=== PATIENT | female | born 1940 | race Caucasian/White ===

== ENCOUNTER 2017-02-07 22:15 | Emergency (ER) | payer MEDICARE, OTHER ==
--- NOTE | 2017-02-07 22:51 | EDM.PDOC ---
ED HPI GENERAL MEDICAL PROBLEM - General Chief Complaint: Fever Stated Complaint: body aches/fever Time Seen by Provider: 02/07/17 22:25 Source of Information: Reports: Patient History Limitations: Reports: No Limitations - History of Present Illness INITIAL COMMENTS - FREE TEXT/NARRATIVE: pt had bowel resection in December. everything was going well. Had her 1 month follow up on Thursday. However, she began having flu symptoms (bodyache, fever, fatigue, nausea). She called her surgeon however, they said follow up this next week if not better. Pt has progressively getting worse. Tonight her fever is 101, chills/sweats, lower abd pain. 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 - Related Data Allergies Allergy/AdvReac Type Severity Reaction Status Date / Time Penicillins Allergy Rash Verified 02/07/17 22:28 Home Meds: Home Meds Acetaminophen [Acetaminophen Extra Strength] 500 mg PO Q4HR PRN 06/21/13 [ History] Aspirin [Low Dose Aspirin EC] 81 mg PO DAILY 06/21/13 [History] Furosemide [Lasix] 0.5 tab PO DAILY 06/21/13 [History] Lisinopril 10 mg PO DAILY 06/21/13 [History] Docusate Sodium/Sennosides [Senna Plus] 1 tab PO BID #60 tablet 11/09/13 [Rx] Meloxicam 15 mg PO DAILY 04/03/15 [History] Simvastatin [Zocor] 10 mg PO DAILY 04/03/15 [History] Polyethylene Glycol 3350 [MiraLAX] 17 gm PO DAILY 02/07/17 [History] Past Medical History HEENT History: Reports: Impaired Vision Cardiovascular History: Reports: High Cholesterol, Hypertension - Past Surgical History GI Surgical History: Reports: Colon Musculoskeletal Surgical History: Reports: Joint Replacement, Knee Replacement Social & Family History - Tobacco Use Smoking Status *Q: Former Smoker Used Tobacco, but Quit: Yes Month Tobacco Last Used: ? Second Hand Smoke Exposure: No - Alcohol Use Days Per Week of Alcohol Use: 0 - Recreational Drug Use Recreational Drug Use: No ED ROS GENERAL - Review of Systems Review Of Systems: See Below Constitutional: Reports: Fever, Chills, Malaise, Fatigue HEENT: Reports: No Symptoms Respiratory: Reports: No Symptoms Cardiovascular: Reports: No Symptoms Endocrine: Reports: No Symptoms GI/Abdominal: Reports: No Symptoms : Reports: Frequency, Pain, Urgency, Urinary Retention. Denies: Dysuria, Flank Pain, Hematuria Musculoskeletal: Reports: No Symptoms Skin: Reports: No Symptoms Neurological: Reports: No Symptoms. Denies: Confusion, Dizziness, Headache, Numbness Psychiatric: Reports: No Symptoms ED EXAM, GI/ABD - Physical Exam Exam: See Below Exam Limited By: No Limitations General Appearance: Alert, WD/WN, No Apparent Distress Head: Atraumatic, Normocephalic Neck: Normal Inspection Respiratory/Chest: No Respiratory Distress, Lungs Clear, Normal Breath Sounds, No Accessory Muscle Use, Chest Non-Tender Cardiovascular: Normal Peripheral Pulses, Regular Rate, Rhythm, No Edema, No Gallop, No JVD, No Murmur GI/Abdominal Exam: Normal Bowel Sounds, Tender. No: No Distention, No Mass, Pelvis Stable, Distended, Guarding, Rigid, Hernia, Mass Back Exam: Normal Inspection, Full Range of Motion Extremities: Normal Inspection, Normal Range of Motion Neurological: Alert, Oriented Skin Exam: Warm Course - Vital Signs Last Recorded V/S: Last Vital Signs Temp 38.5 C H 02/07/17 22:24 Pulse 94 02/07/17 22:24 Resp 18 02/07/17 22:24 BP 121/62 02/07/17 22:24 Pulse Ox 94 L 02/07/17 22:24 - Orders/Labs/Meds Orders: Active Orders 24 hr Category Date Time Status Abdomen Pelvis w wo Cont [CT] Stat Exams 02/07/17 22:46 Ordered CULTURE BLOOD [BC] Stat Lab 02/07/17 23:10 Received Sodium Chloride 0.9% [Normal Saline] 1,000 ml Med 02/07/17 23:00 Active IV ASDIRECTED Sodium Chloride 0.9% [Saline Flush] Med 02/07/17 22:53 Active 10 ml FLUSH ASDIRECTED PRN Sulfamethoxazole/Trimethoprim [Septra IV] 20 ml Med 02/07/17 23:45 Ordered Dextrose 5% in Water 500 ml IV Q8H Peripheral IV Insertion Adult [OM.PC] Routine Oth 02/07/17 22:53 Ordered Medication Orders Sodium Chloride (Normal Saline) 1,000 mls @ 150 mls/hr IV ASDIRECTED EDWARD Last Admin: 02/07/17 23:15 Dose: 150 mls/hr Sodium Chloride (Saline Flush) 10 ml FLUSH ASDIRECTED PRN PRN Reason: Keep Vein Open Labs: Laboratory Tests 02/07/17 02/07/17 02/07/17 Range/Units 23:04 23:10 23:10 WBC 6.3 (4.0-10.0) x10^3/uL RBC 3.47 L (4.00-5.50) x10^6/uL Hgb 10.8 L (12.0-16.0) g/dL Hct 33.4 (33.0-47.0) % MCV 96.3 H (78.0-93.0) fL MCH 31.1 (26.0-32.0) pg MCHC 32.3 (32.0-36.0) g/dL RDW Coeff of Hcristian 13.0 (10.0-15.0) % Plt Count 264 D (130-400) x10^3/uL Neut % (Auto) 66.4 (50.0-80.0) % Lymph % (Auto) 13.7 L (25.0-50.0) % Blaine % (Auto) 12.4 H (2.0-11.0) % Eos % (Auto) 7.0 H (0.0-4.0) % Baso % (Auto) 0.5 (0.2-1.2) % Sodium 136 (136-145) mmol/L Potassium 4.5 (3.5-5.1) mmol/L Chloride 103 (98-107) mmol/L Carbon Dioxide 25 (21-32) mmol/L BUN 19 H (7-18) mg/dL Creatinine 0.8 (0.55-1.02) mg/dL Est Cr Clr Drug Dosing 53.83 mL/min Estimated GFR (MDRD) > 60 Glucose 111 H (74-106) mg/dL Calcium 8.3 L (8.5-10.1) mg/dL Corrected Calcium 9.34 (8.5-10.1) mg/dL Total Bilirubin 0.5 (0.2-1.0) mg/dL AST 29 (15-37) U/L ALT 11 L (14-59) U/L Alkaline Phosphatase 52 (46-116) U/L Total Protein 6.9 (6.4-8.2) g/dL Albumin 2.7 L (3.4-5.0) g/dL Globulin 4.2 Albumin/Globulin Ratio 0.64 Urine Color Yellow (YELLOW) Urine Appearance Clear (CLEAR) Urine pH 5.5 (5.0-8.0) Ur Specific Wick[place] 1.020 Urine Protein 100 H (NEGATIVE) mg/dL Urine Glucose (UA) Negative (NEGATIVE) mg/dL Urine Ketones Trace H (NEGATIVE) mg/dL Urine Occult Blood Moderate H (NEGATIVE) Urine Nitrite Negative (NEGATIVE) Urine Bilirubin Small H (NEGATIVE) Urine Urobilinogen 1.0 (0.2) EU/dL Ur Leukocyte Esterase Negative (NEGATIVE) Urine RBC 10-20 H (NOT SEEN) /HPF Urine WBC 5-10 H (NOT SEEN) /HPF Ur Squamous Epith Cells Moderate H (NEGATIVE) /HPF Urine Bacteria Few H (NEGATIVE) /HPF Urine Mucus Many H (NEGATIVE) /LPF Meds: Medications Generic Name Dose Route Start Last Admin Trade Name Freq PRN Reason Stop Dose Admin Sodium Chloride 1,000 mls @ 150 mls/hr 02/07/17 23:00 02/07/17 23:15 Normal Saline IV 150 mls/hr ASDIRECTED EDWARD Administration Sodium Chloride 10 ml 02/07/17 22:53 Saline Flush FLUSH ASDIRECTED PRN Keep Vein Open Departure - Departure Time of Disposition: 01:19 Disposition: DC/Tfer to Hospice - Home 50 Condition: Good Clinical Impression: UTI (urinary tract infection) Qualifiers: Urinary tract infection type: acute cystitis Hematuria presence: with hematuria Qualified Code(s): N30.01 - Acute cystitis with hematuria Abdominal pain Qualifiers: Abdominal location: lower abdomen, unspecified Qualified Code(s): R10.30 - Lower abdominal pain, unspecified - Discharge Information Forms: ED Department Discharge - My Orders Last 24 Hours: My Active Orders 02/07/17 22:46 Abdomen Pelvis w wo Cont [CT] Stat 02/07/17 22:53 Sodium Chloride 0.9% [Saline Flush] 10 ml FLUSH ASDIRECTED PRN Peripheral IV Insertion Adult [OM.PC] Routine 02/07/17 23:00 Sodium Chloride 0.9% [Normal Saline] 1,000 ml IV ASDIRECTED 02/07/17 23:10 CULTURE BLOOD [BC] Stat 02/07/17 23:45 Sulfamethoxazole/Trimethoprim [Septra IV] 20 ml Dextrose 5% in Water 500 ml IV Q8H - Assessment/Plan Last 24 Hours: My Active Orders 02/07/17 22:46 Abdomen Pelvis w wo Cont [CT] Stat 02/07/17 22:53 Sodium Chloride 0.9% [Saline Flush] 10 ml FLUSH ASDIRECTED PRN Peripheral IV Insertion Adult [OM.PC] Routine 02/07/17 23:00 Sodium Chloride 0.9% [Normal Saline] 1,000 ml IV ASDIRECTED 02/07/17 23:10 CULTURE BLOOD [BC] Stat 02/07/17 23:45 Sulfamethoxazole/Trimethoprim [Septra IV] 20 ml Dextrose 5% in Water 500 ml IV Q8H
[2017-02-07] MEDS ORDERED: Sodium Chloride 0.9% 10 ML Syringe FLUSH PRN (22:53)
[2017-02-07] MEDS ORDERED: Sodium Chloride 0.9% 1,000 ML IV SCH (23:00)
[2017-02-07 23:45] LABS: CHLORIDE,CL 103 mmol/L (98-107); SODIUM,NA 136 mmol/L (136-145)
[2017-02-07] MEDS ORDERED: Sulfamethoxazole/Trimethoprim 20 ML in Dextrose 5% in Water 500 ML IV SCH ×2 (23:45)
[2017-02-08] MEDS ORDERED: Sulfamethoxazole/Trimethoprim 400-80 MG Tab PO SCH (00:15)
[2017-02-08 00:38] VITALS: BP 108/52
[2017-02-08] MEDS ORDERED: Ibuprofen 200 MG Tab PO STA (00:47)
[2017-02-08] MEDS ORDERED: Take Home: Sulfamethoxazole/Trimethoprim 800-160 MG Tab, 2 Tab Pack PO ONE (01:13)
== END 2017-02-08 01:30 | disposition hospice, home (50) ==
LOC: VM.ED 22:15
DX: N30.01 Acute cystitis with hematuria (principal); I10 Essential (primary) hypertension; Z88.0 Allergy status to penicillin; Z79.82 Long term (current) use of aspirin; Z79.899 Other long term (current) drug therapy; E78.00 Pure hypercholesterolemia, unspecified; Z96.659 Presence of unspecified artificial knee joint; Z87.891 Personal history of nicotine dependence
CPT/HCPCS: 74177; 80053; 81001; 85025; 87040; 96360; 96361; 99285; A9270; J7030; 99284-GF

== ENCOUNTER 2018-10-24 09:49 | Emergency (ER) | payer MEDICARE, OTHER, MEDICAID ==
--- NOTE | 2018-10-24 10:46 | CR ---
[id number] RAD/RAD Chest PA or AP 1V EXAM: SINGLE VIEW CHEST. INDICATION: SHORTNESS OF BREATH COMPARISON: NO PREVIOUS SIMILAR EXAM IS AVAILABLE FINDINGS: The lungs are clear. The cardiac silhouette is enlarged. The aorta is slightly tortuous. IMPRESSION: NO PNEUMONIA OR EDEMA. Tariq Daniels MD 10/24/18 1045 Thank you for allowing us to participate in the care of your patient.
[2018-10-24 11:01] LABS: ANION GAP 13.7 mmol/L (10-20); CHLORIDE,CL 104 mmol/L (98-107); SODIUM,NA 140 mmol/L (136-145)
[2018-10-24] MEDS ORDERED: Furosemide 40 MG/4 ML VIAL IV ONE (11:08)
[2018-10-24] MEDS ORDERED: LORazepam 1 MG Tab PO ONE (11:15)
[2018-10-24] MEDS ORDERED: Albuterol/Ipratropium 3.0-0.5 MG/3 ML Neb Soln ONE (11:17)
--- NOTE | 2018-10-24 12:19 | EDM.PDOC ---
ED HPI GENERAL MEDICAL PROBLEM - General Chief Complaint: Respiratory Problem Stated Complaint: Shortness of Breath Time Seen by Provider: 10/24/18 10:00 Source of Information: Reports: Patient History Limitations: Reports: No Limitations - History of Present Illness INITIAL COMMENTS - FREE TEXT/NARRATIVE: Pt. presents to ER with complaints of dyspnea that started yesterday. Pt. has finished a course of prednisone and levaquin for pneumonia. She states that she is continuing to experience shortness of breath. She complains of orthopnea and LOGAN. She has not been weighing herself. She complains of increased edema in her ankles and feet. She denies any chest pain. No nausea, vomiting, or diarrhea. No abdominal pain. She states that she is no longer experiencing any fever or chills. She has not been around any sick contacts. 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 - Related Data Allergies Allergy/AdvReac Type Severity Reaction Status Date / Time Penicillins Allergy Rash Verified 10/24/18 11:34 Home Meds: Home Meds Aspirin [Low Dose Aspirin EC] 81 mg PO DAILY 06/21/13 [History] Lisinopril 30 mg PO DAILY 06/21/13 [History] Simvastatin [Zocor] 10 mg PO DAILY 04/03/15 [History] Polyethylene Glycol 3350 [MiraLAX] 17 gm PO DAILY 02/07/17 [History] Acetaminophen [Tylenol Extra Strength] 1,000 mg PO QID 03/11/18 [History] Metoprolol Succinate [Toprol XL 50mg] 50 mg PO DAILY 03/11/18 [History] Omeprazole Magnesium [Prilosec Otc] 20 mg PO DAILY 03/11/18 [History] diphenhydrAMINE HCl [Benadryl] 25 mg PO BEDTIME 03/11/18 [History] hydroCHLOROthiazide [Hydrochlorothiazide] 25 g PO DAILY 03/11/18 [History] Budesonide/Formoterol [Symbicort 160-4.5 MCG] 2 puff INH BID 10/24/18 [History] Levofloxacin 500 mg PO DAILY MDD x7 days, done on 10/25/18 10/24/18 [History] Triamcinolone Acetonide [Triamcinolone Acetonide 0.1% Oint] 1 applic TOP BID PRN 10/24/18 [History] Past Medical History HEENT History: Reports: Allergic Rhinitis, Impaired Vision Cardiovascular History: Reports: High Cholesterol, Hypertension Genitourinary History: Reports: Urinary Incontinence Musculoskeletal History: Reports: Back Pain, Chronic - Past Surgical History HEENT Surgical History: Reports: Cataract Surgery Cardiovascular Surgical History: Reports: None GI Surgical History: Reports: Colon Female Surgical History: Reports: Hysterectomy Musculoskeletal Surgical History: Reports: Joint Replacement, Knee Replacement Social & Family History - Family History Cardiac: Reports: Heart Failure ED ROS GENERAL - Review of Systems Review Of Systems: See Below Constitutional: Reports: Fatigue. Denies: Fever, Chills, Diaphoresis HEENT: Reports: No Symptoms Respiratory: Reports: Shortness of Breath. Denies: Wheezing, Cough Cardiovascular: Reports: Dyspnea on Exertion, Orthopnea. Denies: Chest Pain, Syncope Endocrine: Reports: No Symptoms GI/Abdominal: Reports: No Symptoms : Reports: No Symptoms Musculoskeletal: Reports: No Symptoms Skin: Reports: No Symptoms Neurological: Reports: No Symptoms Psychiatric: Reports: No Symptoms Hematologic/Lymphatic: Reports: No Symptoms Immunologic: Reports: No Symptoms ED EXAM, GENERAL - Physical Exam Exam: See Below Exam Limited By: No Limitations General Appearance: Alert, WD/WN, No Apparent Distress Throat/Mouth: Normal Inspection, Normal Lips, Normal Teeth, Normal Gums, Normal Oropharynx, Normal Voice, No Airway Compromise Head: Atraumatic, Normocephalic Neck: Normal Inspection, Supple, Non-Tender Respiratory/Chest: No Respiratory Distress, No Accessory Muscle Use, Crackles, Rales Cardiovascular: Normal Peripheral Pulses, Regular Rate, Rhythm, No JVD GI/Abdominal: Normal Bowel Sounds, Soft, Non-Tender, No Organomegaly, No Distention, No Abnormal Bruit, No Mass Back Exam: Normal Inspection, Full Range of Motion Extremities: Normal Inspection, Normal Range of Motion, Non-Tender, Normal Capillary Refill, No Pedal Edema EKG INTERPRETATION Rhythm: NSR [place]: Normal P-Wave: Present QRS: Normal ST-T: Normal QT: Normal Course - Vital Signs Last Recorded V/S: Last Vital Signs Temp 36.2 C 10/24/18 09:55 Pulse 89 10/24/18 12:00 Resp 32 H 10/24/18 09:55 BP 117/56 L 10/24/18 12:00 Pulse Ox 96 10/24/18 11:53 - Orders/Labs/Meds Labs: Laboratory Tests 10/24/18 10/24/18 10/24/18 Range/Units 10:22 10:22 10:22 WBC 9.5 (4.0-10.0) x10^3/uL RBC 4.08 (4.00-5.50) x10^6/uL Hgb 13.0 D (12.0-16.0) g/dL Hct 40.0 (33.0-47.0) % MCV 98.0 H (78.0-93.0) fL MCH 31.9 (26.0-32.0) pg MCHC 32.5 (32.0-36.0) g/dL RDW Coeff of Christian 12.7 (10.0-15.0) % Plt Count 260 (130-400) x10^3/uL Add Manual Diff Yes Neutrophils % (Manual) 60 (50-80) % Band Neutrophils % 1 (0-6) % Lymphocytes % (Manual) 10 L (25-50) % Reactive Lymphs % 17 H (0) % Monocytes % (Manual) 12 H (2-11) % Vacuolated Monocytes Rare Platelet Estimate Adequate Macrocytosis 1+ slight H Ovalocytes Rare PT 10.7 (10.0-12.8) SEC INR 0.9 L (2.0-3.5) D-Dimer, Quantitative 0.43 (<=0.58) mg/LFEU Sodium 140 (136-145) mmol/L Potassium 3.7 (3.5-5.1) mmol/L Chloride 104 (98-107) mmol/L Carbon Dioxide 26 (21-32) mmol/L Anion Gap 13.7 (10-20) mmol/L BUN 25 H (7-18) mg/dL Creatinine 0.8 (0.55-1.02) mg/dL Est Cr Clr Drug Dosing TNP Estimated GFR (MDRD) > 60 Glucose 101 (74-106) mg/dL Lactic Acid (0.4-2.0) mmol/L Calcium 8.9 (8.5-10.1) mg/dL Corrected Calcium 9.54 (8.5-10.1) mg/dL Phosphorus 2.5 L (2.6-4.7) mg/dL Magnesium 1.9 (1.8-2.4) mg/dL Total Bilirubin 0.4 (0.2-1.0) mg/dL AST 16 (15-37) U/L ALT 20 (14-59) U/L Alkaline Phosphatase 52 (46-116) U/L Troponin I < 0.017 (<=0.056) ng/mL C-Reactive Protein < 0.2 (<=0.9) mg/dL NT-Pro-B Natriuret Pep 1019 H (<=450) pg/mL Total Protein 6.5 (6.4-8.2) g/dL Albumin 3.2 L (3.4-5.0) g/dL Globulin 3.3 Albumin/Globulin Ratio 0.97 / Range/Units 10:22 WBC (4.0-10.0) x10^3/uL RBC (4.00-5.50) x10^6/uL Hgb (12.0-16.0) g/dL Hct (33.0-47.0) % MCV (78.0-93.0) fL MCH (26.0-32.0) pg MCHC (32.0-36.0) g/dL RDW Coeff of Christian (10.0-15.0) % Plt Count (130-400) x10^3/uL Add Manual Diff Neutrophils % (Manual) (50-80) % Band Neutrophils % (0-6) % Lymphocytes % (Manual) (25-50) % Reactive Lymphs % (0) % Monocytes % (Manual) (2-11) % Vacuolated Monocytes Platelet Estimate Macrocytosis Ovalocytes PT (10.0-12.8) SEC INR (2.0-3.5) D-Dimer, Quantitative (<=0.58) mg/LFEU Sodium (136-145) mmol/L Potassium (3.5-5.1) mmol/L Chloride (98-107) mmol/L Carbon Dioxide (21-32) mmol/L Anion Gap (10-20) mmol/L BUN (7-18) mg/dL Creatinine (0.55-1.02) mg/dL Est Cr Clr Drug Dosing Estimated GFR (MDRD) Glucose (74-106) mg/dL Lactic Acid 2.1 H* (0.4-2.0) mmol/L Calcium (8.5-10.1) mg/dL Corrected Calcium (8.5-10.1) mg/dL Phosphorus (2.6-4.7) mg/dL Magnesium (1.8-2.4) mg/dL Total Bilirubin (0.2-1.0) mg/dL AST (15-37) U/L ALT (14-59) U/L Alkaline Phosphatase (46-116) U/L Troponin I (<=0.056) ng/mL C-Reactive Protein (<=0.9) mg/dL NT-Pro-B Natriuret Pep (<=450) pg/mL Total Protein (6.4-8.2) g/dL Albumin (3.4-5.0) g/dL Globulin Albumin/Globulin Ratio Meds: Medications Discontinued Medications Generic Name Dose Route Start Last Admin Trade Name Freq PRN Reason Stop Dose Admin Albuterol/Ipratropium Confirm 10/24/18 11:17 10/24/18 10:04 Duoneb 3.0-0.5 Mg/3 Ml Administered 10/24/18 11:18 3 ml Dose Administration 3 ml .ROUTE .STK-MED ONE Furosemide 40 mg 10/24/18 11:08 10/24/18 11:15 Lasix IV 10/24/18 11:09 40 mg ONETIME ONE Administration Lorazepam 1 mg 10/24/18 11:15 10/24/18 11:24 Ativan PO 10/24/18 11:16 1 mg ONETIME ONE Administration - Radiology Interpretation Free Text/Narrative:: CHF Departure - Departure Time of Disposition: 12:00 Disposition: Home, Self-Care 01 Condition: Good Clinical Impression: Congestive heart failure - Discharge Information Instructions: Heart Failure, [id number], Preventing Heart Failure Referrals: Nina Bolanos MD [Primary Care Provider] - Forms: ED Department Discharge Additional Instructions: Home to rest. Continue with your other medications. Follow-up with Dr. Bolanos later this week. Return to ER if you have worsening shortness of breath or chest pain. - Problem List Review Problem List Initiated/Reviewed/Updated: Yes - Assessment/Plan Plan: Home to rest. Continue with your other medications. Follow-up with Dr. Bolanos later this week. Return to ER if you have worsening shortness of breath or chest pain.
[2018-10-24 12:33] VITALS: BP 117/56
== END 2018-10-24 12:00 | disposition home or self-care (01) ==
LOC: VM.ED 09:49
DX: I11.0 Hypertensive heart disease with heart failure (principal); I50.9 Heart failure, unspecified; Z79.899 Other long term (current) drug therapy; Z88.0 Allergy status to penicillin; Z79.82 Long term (current) use of aspirin
CPT/HCPCS: 36415; 71045; 80053; 83605; 83735; 83880; 84100; 84484; 85025; 85379; 85610; 86140; 87040; 96374; 99285-25; A9270-GY; J1940; J7620-GY

== ENCOUNTER 2019-03-31 21:25 | Emergency (ER) | payer MEDICARE, OTHER ==
[2019-03-31 21:39] VITALS: BP 143/56; PULSE 89
[2019-03-31 22:15] LABS: CHLORIDE,CL 104 mmol/L (98-109); SODIUM,NA 140 mmol/L (138-146)
--- NOTE | 2019-04-01 06:09 | EDM.PDOC ---
ED HPI GENERAL MEDICAL PROBLEM - General Chief Complaint: Cardiovascular Problem Stated Complaint: HIGH BP AND DIZZY Time Seen by Provider: 03/31/19 21:39 Source of Information: Reports: Patient History Limitations: Reports: No Limitations - History of Present Illness INITIAL COMMENTS - FREE TEXT/NARRATIVE: Pt. presents to ER with complaints of feeling "fuzzy". She states that she has a history of vertigo and sees PT for this which has been helpful. She states that the symptoms are similar to that. Denies any chest pain. No jaw, arm, neck or back pain. No fever or chills. No dysuria. Pt. states that she took her BP at home and her machine read 240/120. BP on arrival to ED was within normal limits. Pt. denies any fever or chills. No nausea, vomiting, or diarrhea. Onset Date: 03/31/19 Location: Reports: Generalized Associated Symptoms: Reports: Other - Related Data Allergies Allergy/AdvReac Type Severity Reaction Status Date / Time Penicillins Allergy Rash Verified 03/31/19 21:29 Home Meds: Home Meds Aspirin [Low Dose Aspirin EC] 81 mg PO DAILY 06/21/13 [History] Lisinopril 30 mg PO DAILY 06/21/13 [History] Polyethylene Glycol 3350 [MiraLAX] 17 gm PO DAILY 02/07/17 [History] Acetaminophen [Tylenol Extra Strength] 1,000 mg PO QID 03/11/18 [History] Metoprolol Succinate [Toprol XL 50mg] 25 mg PO DAILY 03/11/18 [History] Omeprazole Magnesium [Prilosec Otc] 20 mg PO DAILY 03/11/18 [History] diphenhydrAMINE HCl [Benadryl] 25 mg PO BEDTIME 03/11/18 [History] hydroCHLOROthiazide [Hydrochlorothiazide] 25 g PO DAILY 03/11/18 [History] Budesonide/Formoterol [Symbicort 160-4.5 MCG] 2 puff INH BID 10/24/18 [History] Triamcinolone Acetonide [Triamcinolone Acetonide 0.1% Oint] 1 applic TOP BID PRN 10/24/18 [History] Albuterol [Proventil HFA] 2 puff INH Q4H PRN 03/03/19 [History] Cranberry Extract/Vit C [Azo Cranberry Softgel] 1 each PO DAILY PRN 03/03/19 [ History] Furosemide 20 mg PO DAILY 03/03/19 [History] Pravastatin [Pravachol] 10 mg PO DAILY 03/03/19 [History] Tiotropium Br/Olodaterol HCl [Stiolto Respimat Inhal [place]] 2 puff IH DAILY [History] Past Medical History HEENT History: Reports: Allergic Rhinitis, Impaired Vision Cardiovascular History: Reports: High Cholesterol, Hypertension Other Cardiovascular History: 02/2019 states she has fluid around heart and is taking lasix now Respiratory History: Reports: COPD Genitourinary History: Reports: Urinary Incontinence Musculoskeletal History: Reports: Back Pain, Chronic Neurological History: Reports: Vertigo Psychiatric History: Reports: None Endocrine/Metabolic History: Reports: Obesity/BMI 30+ - Past Surgical History HEENT Surgical History: Reports: Cataract Surgery Cardiovascular Surgical History: Reports: None GI Surgical History: Reports: Colon, Colonoscopy Female Surgical History: Reports: Hysterectomy Musculoskeletal Surgical History: Reports: Joint Replacement, Knee Replacement Social & Family History - Family History Cardiac: Reports: Heart Failure - Tobacco Use Smoking Status *Q: Unknown Ever Smoked ED ROS GENERAL - Review of Systems Review Of Systems: See Below Constitutional: Reports: Other HEENT: Reports: Vertigo Respiratory: Reports: No Symptoms Cardiovascular: Reports: Lightheadedness Endocrine: Reports: No Symptoms GI/Abdominal: Reports: No Symptoms : Reports: No Symptoms Musculoskeletal: Reports: No Symptoms Skin: Reports: No Symptoms Neurological: Reports: Dizziness Psychiatric: Reports: No Symptoms Hematologic/Lymphatic: Reports: No Symptoms Immunologic: Reports: No Symptoms ED EXAM, GENERAL - Physical Exam Exam: See Below Exam Limited By: No Limitations General Appearance: Alert, WD/WN, No Apparent Distress Eye Exam: Bilateral Eye: EOMI, Normal Fundi, Normal Inspection, PERRL Nose: Normal Inspection, Normal Mucosa, No Blood Throat/Mouth: Normal Inspection, Normal Lips, Normal Teeth, Normal Gums, Normal Oropharynx, Normal Voice, No Airway Compromise Head: Atraumatic, Normocephalic Neck: Normal Inspection, Supple, Non-Tender, Full Range of Motion Respiratory/Chest: No Respiratory Distress, Lungs Clear, Normal Breath Sounds, No Accessory Muscle Use, Chest Non-Tender Cardiovascular: Normal Peripheral Pulses, Regular Rate, Rhythm, No Edema, No Gallop, No JVD, No Murmur, No Rub Peripheral Pulses: 4+: Radial (L) GI/Abdominal: Normal Bowel Sounds, Soft, Non-Tender, No Organomegaly, No Distention, No Abnormal Bruit, No Mass, Pelvis Stable (Female) Exam: Deferred Rectal (Female) Exam: Deferred Back Exam: Normal Inspection, Full Range of Motion Extremities: Normal Inspection, Normal Range of Motion, Non-Tender, No Pedal Edema, Normal Capillary Refill Neurological: Alert, Oriented, CN II-XII Intact, Normal Cognition, Normal Gait, Normal Reflexes, No Motor/Sensory Deficits Psychiatric: Normal Affect, Normal Mood Skin Exam: Warm, Dry, Intact, Normal Color, No Rash Lymphatic: No Adenopathy Course - Vital Signs Last Recorded V/S: Last Vital Signs Temp 37.3 C 03/31/19 21:29 Pulse 89 03/31/19 21:29 Resp 18 03/31/19 21:29 BP 143/56 H 03/31/19 21:29 Pulse Ox 93 L 03/31/19 21:29 - Orders/Labs/Meds Orders: Active Orders 24 hr Category Date Time Status EKG Documentation Completion [RC] STAT Care 03/31/19 21:44 Active Chest 2V [CR] Stat Exams 03/31/19 21:44 Taken Labs: Laboratory Tests 03/31/19 03/31/19 03/31/19 Range/Units 22:01 22:01 22:06 WBC 7.9 (4.0-10.0) x10^3/uL RBC 3.81 L (4.00-5.50) x10^6/uL Hgb 12.0 (12.0-16.0) g/dL Hct 37.9 (33.0-47.0) % MCV 99.5 H (78.0-93.0) fL MCH 31.5 (26.0-32.0) pg MCHC 31.7 L (32.0-36.0) g/dL RDW Coeff of Christian 13.2 (10.0-15.0) % Plt Count 180 D (130-400) x10^3/uL Neut % (Auto) 64.9 (50.0-80.0) % Lymph % (Auto) 19.8 L (25.0-50.0) % [place] % (Auto) 10.2 (2.0-11.0) % Eos % (Auto) 4.5 H (0.0-4.0) % Baso % (Auto) 0.6 (0.2-1.2) % Sodium 140 (138-146) mmol/L Potassium 4.0 (3.5-4.9) mmol/L Chloride 104 (98-109) mmol/L Carbon Dioxide 25 (24-29) mmol/L Anion Gap 15.0 (10-20) mmol/L BUN 27 H (8-26) mg/dL Creatinine 1.0 (0.6-1.3) mg/dL Est Cr Clr Drug Dosing TNP Estimated GFR (MDRD) 54 Glucose 127 H (70-105) mg/dL Calcium 8.6 (8.5-10.1) mg/dL Corrected Calcium 9.08 (8.5-10.1) mg/dL Total Bilirubin 0.3 (0.2-1.0) mg/dL AST 16 (15-37) U/L ALT 17 (14-59) U/L Alkaline Phosphatase 58 (46-116) U/L Troponin I < 0.017 (<=0.056) ng/mL Total Protein 7.1 (6.4-8.2) g/dL Albumin 3.4 (3.4-5.0) g/dL Globulin 3.7 Albumin/Globulin Ratio 0.92 Urine Color Yellow (YELLOW) Urine Appearance Clear (CLEAR) Urine pH 6.0 (5.0-8.0) Ur Specific [place] 1.025 Urine Protein Negative (NEGATIVE) mg/dL Urine Glucose (UA) Negative (NEGATIVE) mg/dL Urine Ketones Negative (NEGATIVE) mg/dL Urine Occult Blood Small H (NEGATIVE) Urine Nitrite Negative (NEGATIVE) Urine Bilirubin Negative (NEGATIVE) Urine Urobilinogen 0.2 (0.2) EU/dL Ur Leukocyte Esterase Negative (NEGATIVE) Urine RBC 0-5 (NOT SEEN) /HPF Urine WBC 0-5 (NOT SEEN) /HPF Ur Squamous Epith Cells Many H (NEGATIVE) /HPF Urine Bacteria Not seen (NEGATIVE) /HPF Urine Mucus Moderate H (NEGATIVE) /LPF Departure - Departure Time of Disposition: 22:53 Disposition: Home, Self-Care 01 Clinical Impression: Vertigo Instructions: Vertigo, [id number] Referrals: Nina Bolanos MD [Primary Care Provider] - Forms: ED Department Discharge Additional Instructions: Home to rest. All of your tests were normal. Follow-up with physical therapy regarding your vertigo. - My Orders Last 24 Hours: My Active Orders 03/31/19 21:44 EKG Documentation Completion [RC] STAT Chest 2V [CR] Stat - Assessment/Plan Last 24 Hours: My Active Orders 03/31/19 21:44 EKG Documentation Completion [RC] STAT Chest 2V [CR] Stat Plan: Home to rest. All of your tests were normal. Follow-up with physical therapy regarding your vertigo.
--- NOTE | 2019-04-01 07:42 | CR ---
[id number] RAD/RAD Chest PA And Lateral EXAM: RAD Chest PA And Lateral CLINICAL DATA: SYNCOPE BRADYCARDIA COMPARISON: CORRELATION IS MADE WITH THE EXAM OF OCTOBER 24, 2018 FINDINGS: The lungs are clear. The cardiomediastinal contour is prominent but stable. The regional bones and soft tissues are unremarkable. IMPRESSION: NO ACUTE PROCESS. Tariq Daniels MD 04/01/19 0741 Thank you for allowing us to participate in the care of your patient.
== END 2019-03-31 22:53 | disposition home or self-care (01) ==
LOC: VM.ED 21:25
DX: R42 Dizziness and giddiness (principal); I10 Essential (primary) hypertension; E66.9 Obesity, unspecified; Z79.899 Other long term (current) drug therapy; Z98.49 Cataract extraction status, unspecified eye; Z90.710 Acquired absence of both cervix and uterus; Z88.0 Allergy status to penicillin; Z79.82 Long term (current) use of aspirin
CPT/HCPCS: 36415; 71046; 80053; 81001; 84484; 85025; 93005; 99284-25; 99284-GF

== ENCOUNTER 2020-01-28 16:50 | Emergency (ER) | payer MEDICARE, OTHER ==
[2020-01-28] MEDS ORDERED: Sodium Chloride 0.9% 10 ML Syringe FLUSH PRN (17:18)
[2020-01-28] MEDS ORDERED: Ondansetron 4 MG/2 ML SDV IV ONE (17:33)
[2020-01-28] MEDS ORDERED: HYDROmorphone 1 MG/ML Syringe IVPUSH ONE (17:33)
[2020-01-28] MEDS ORDERED: Piperacillin/Tazobactam 3.375 GM in Sodium Chloride 0.9% 100 ML IV ONE (17:34)
--- NOTE | 2020-01-28 17:40 | EDM.PDOC ---
ED HPI GENERAL MEDICAL PROBLEM - General Chief Complaint: General Stated Complaint: SOMETHINGS JUST NOT RIGHT Time Seen by Provider: 01/28/20 17:25 Source of Information: Reports: Patient - History of Present Illness INITIAL COMMENTS - FREE TEXT/NARRATIVE: Patient comes emergency department today from home with complaints of nausea and a bandlike epigastric pain. Yesterday during the day the patient was without complaints. Last night she had some [place] food shortly thereafter she developed nausea bloating and gas. She has a bandlike sensation around her epigastric region. She has no chest pain shortness of breath or difficulty breathing. She denies any fever chills body aches malaise or fatigue. No weakness dizziness lightheadedness. No syncope. She does complain of nausea without vomiting. She has had 3-4 loose diarrheal stools today that were not dark tarry or bloody in nature. She denies any COVID symptoms denies any cold exposure. Denies any hematuria dysuria or urinary frequency. She still has her appendix and her gallbladder. She has had a hysterectomy and a bowel resection in the past. Abdominal Pain Score (Numeric/FACES): 4 - Related Data Allergies Allergy/AdvReac Type Severity Reaction Status Date / Time Penicillins Allergy Rash Verified 01/28/20 17:01 Home Meds: Home Meds Aspirin [Low Dose Aspirin EC] 81 mg PO DAILY 06/21/13 [History] Lisinopril 30 mg PO DAILY 06/21/13 [History] Polyethylene Glycol 3350 [MiraLAX] 17 gm PO DAILY 02/07/17 [History] Acetaminophen [Tylenol Extra Strength] 1,000 mg PO QID 03/11/18 [History] Metoprolol Succinate [Toprol XL 50mg] 25 mg PO DAILY 03/11/18 [History] Omeprazole Magnesium [Prilosec Otc] 20 mg PO DAILY 03/11/18 [History] diphenhydrAMINE HCL [Benadryl] 25 mg PO BEDTIME 03/11/18 [History] hydroCHLOROthiazide [Hydrochlorothiazide] 25 g PO DAILY 03/11/18 [History] Budesonide/Formoterol [Symbicort 160-4.5 MCG] 2 puff INH BID 10/24/18 [History] Triamcinolone Acetonide [Triamcinolone Acetonide 0.1% Oint] 1 applic TOP BID PRN 10/24/18 [History] Albuterol [Proventil HFA] 2 puff INH Q4H PRN 03/03/19 [History] Cranberry Fruit Extract/Vit C [Azo Cranberry Softgel] 1 each PO DAILY PRN 03/03/19 [History] Furosemide 20 mg PO DAILY 03/03/19 [History] Pravastatin [Pravachol] 10 mg PO DAILY 03/03/19 [History] Tiotropium Br/Olodaterol HCl [Stiolto Respimat Inhal [place]] 2 puff IH DAILY 03/03/19 [History] Past Medical History HEENT History: Reports: Allergic Rhinitis, Impaired Vision Cardiovascular History: Reports: High Cholesterol, Hypertension Other Cardiovascular History: 02/2019 states she has fluid around heart and is taking lasix now Respiratory History: Reports: COPD Genitourinary History: Reports: Urinary Incontinence Musculoskeletal History: Reports: Back Pain, Chronic Neurological History: Reports: Vertigo Psychiatric History: Reports: None Endocrine/Metabolic History: Reports: Obesity/BMI 30+ - Past Surgical History HEENT Surgical History: Reports: Cataract Surgery Cardiovascular Surgical History: Reports: None GI Surgical History: Reports: Colon, Colonoscopy Female Surgical History: Reports: Hysterectomy Musculoskeletal Surgical History: Reports: Joint Replacement, Knee Replacement Social & Family History - Family History Cardiac: Reports: Heart Failure ED ROS GENERAL - Review of Systems Review Of Systems: Comprehensive ROS is negative, except as noted in HPI. ED EXAM, GENERAL - Physical Exam Exam: See Below Exam Limited By: No Limitations General Appearance: Alert, WD/WN, No Apparent Distress Respiratory/Chest: No Respiratory Distress, Lungs Clear, Normal Breath Sounds, No Accessory Muscle Use Cardiovascular: Normal Peripheral Pulses, Regular Rate, Rhythm Peripheral Pulses: 2+: Radial (L), Radial (R), Posterior Tibial (L), Posterior Tibial (R), Dorsalis Pedis (L), Dorsalis Pedis (R) GI/Abdominal: Normal Bowel Sounds, Soft, Guarding (Right upper quadrant and epigastric region), Rebound (Rebound tenderness of the right upper quadrant. Rest of the abdomen is soft nontender nondistended), Tender (Right upper quadrant with a positive Kwong sign), Abnormal Bowel Sounds (Hypoactive bowel sounds), Other (She has tympany to percussion in the upper abdomen and dullness to percussion in the lower abdomen.). No: Distended, Rigid (Female) Exam: Deferred Rectal (Female) Exam: Deferred Back Exam: Normal Inspection, Full Range of Motion Extremities: Normal Inspection, Normal Range of Motion Neurological: Alert, Oriented, Normal Cognition, No Motor/Sensory Deficits Psychiatric: Normal Affect Skin Exam: Intact, Cool, Diaphoretic, Pallor EKG INTERPRETATION EKG Date: 01/28/20 Time: 17:19 Rhythm: NSR (With ventricular bigeminy as well none perfused ectopic beats.) Rate (Beats/Min): 64 (128 on the EKG but she does not perfuse with the ectopic bigeminy) [place]: Normal P-Wave: Present QRS: Normal ST-T: Normal QT: Normal Comparison: Change From Previous EKG (bigeminy was not present on previous EKG.) Course - Vital Signs Last Recorded V/S: Last Vital Signs Temp 95.5 F L 01/28/20 18:31 Pulse 100 01/28/20 18:31 Resp 16 01/28/20 18:31 BP 110/53 L 01/28/20 18:31 Pulse Ox 90 L 01/28/20 18:31 - Orders/Labs/Meds Orders: Active Orders 24 hr Category Date Time Status EKG Documentation Completion [RC] STAT Care 01/28/20 17:18 Active CULTURE BLOOD [BC] Stat Lab 01/28/20 17:35 Received CULTURE BLOOD [BC] Stat Lab 01/28/20 17:42 Received Sodium Chloride 0.9% [Saline Flush] Med 01/28/20 17:18 Active 10 ml FLUSH ASDIRECTED PRN Blood Culture x2 Reflex Set [OM.PC] Stat Oth 01/28/20 17:31 Ordered Peripheral IV Insertion Adult [OM.PC] Stat Oth 01/28/20 17:18 Ordered Medication Orders Sodium Chloride (Saline Flush) 10 ml FLUSH ASDIRECTED PRN PRN Reason: Keep Vein Open Last Admin: 01/28/20 17:55 Dose: 10 ml Documented by: SALEEM Labs: Laboratory Tests 01/28/20 01/28/20 01/28/20 Range/Units 17:19 17:19 17:35 WBC 22.0 H* (4.0-10.0) x10^3/uL RBC 3.83 L (4.00-5.50) x10^6/uL Hgb 12.5 (12.0-16.0) g/dL Hct 37.7 (33.0-47.0) % MCV 98.4 H (78.0-93.0) fL MCH 32.6 H (26.0-32.0) pg MCHC 33.2 (32.0-36.0) g/dL RDW Coeff of Christian 12.9 (10.0-15.0) % Plt Count 304 D (130-400) x10^3/uL Add Manual Diff Yes Neutrophils % (Manual) 76 (50-80) % Band Neutrophils % 5 (0-6) % Lymphocytes % (Manual) 12 L (25-50) % Monocytes % (Manual) 5 (2-11) % Eosinophils % (Manual) 1 (0-4) % Metamyelocytes % 1 H (0) % Sodium 135 L (136-145) mmol/L Potassium 4.3 (3.5-5.1) mmol/L Chloride 99 (98-107) mmol/L Carbon Dioxide 25 (21-32) mmol/L Anion Gap 15.3 (10-20) mmol/L BUN 25 H (7-18) mg/dL Creatinine 1.0 (0.55-1.02) mg/dL Est Cr Clr Drug Dosing 44.36 mL/min Estimated GFR (MDRD) 53 Glucose 134 H (74-106) mg/dL Lactic Acid 1.7 (0.4-2.0) mmol/L Calcium 9.1 (8.5-10.1) mg/dL Corrected Calcium 9.50 (8.5-10.1) mg/dL Total Bilirubin 0.8 (0.2-1.0) mg/dL AST 19 (15-37) U/L ALT 20 (14-59) U/L Alkaline Phosphatase 58 (46-116) U/L Troponin I < 0.017 (<=0.056) ng/mL C-Reactive Protein 7.6 H (<=0.9) mg/dL Total Protein 7.2 (6.4-8.2) g/dL Albumin 3.5 (3.4-5.0) g/dL Globulin 3.7 Albumin/Globulin Ratio 0.95 Lipase 211 (73-393) U/L Urine Color (YELLOW) Urine Appearance (CLEAR) Urine pH (5.0-8.0) Ur Specific [place] Urine Protein (NEGATIVE) mg/dL Urine Glucose (UA) (NEGATIVE) mg/dL Urine Ketones (NEGATIVE) mg/dL Urine Occult Blood (NEGATIVE) Urine Nitrite (NEGATIVE) Urine Bilirubin (NEGATIVE) Urine Urobilinogen (0.2) EU/dL Ur Leukocyte Esterase (NEGATIVE) Urine RBC (NOT SEEN) /HPF Urine WBC (NOT SEEN) /HPF Ur Squamous Epith Cells (NEGATIVE) /HPF Urine Bacteria (NEGATIVE) /HPF Urine Mucus (NEGATIVE) /LPF 01/28/20 Range/Units 18:10 WBC (4.0-10.0) x10^3/uL RBC (4.00-5.50) x10^6/uL Hgb (12.0-16.0) g/dL Hct (33.0-47.0) % MCV (78.0-93.0) fL MCH (26.0-32.0) pg MCHC (32.0-36.0) g/dL RDW Coeff of Christian (10.0-15.0) % Plt Count (130-400) x10^3/uL Add Manual Diff Neutrophils % (Manual) (50-80) % Band Neutrophils % (0-6) % Lymphocytes % (Manual) (25-50) % Monocytes % (Manual) (2-11) % Eosinophils % (Manual) (0-4) % Metamyelocytes % (0) % Sodium (136-145) mmol/L Potassium (3.5-5.1) mmol/L Chloride (98-107) mmol/L Carbon Dioxide (21-32) mmol/L Anion Gap (10-20) mmol/L BUN (7-18) mg/dL Creatinine (0.55-1.02) mg/dL Est Cr Clr Drug Dosing mL/min Estimated GFR (MDRD) Glucose (74-106) mg/dL Lactic Acid (0.4-2.0) mmol/L Calcium (8.5-10.1) mg/dL Corrected Calcium (8.5-10.1) mg/dL Total Bilirubin (0.2-1.0) mg/dL AST (15-37) U/L ALT (14-59) U/L Alkaline Phosphatase (46-116) U/L Troponin I (<=0.056) ng/mL C-Reactive Protein (<=0.9) mg/dL Total Protein (6.4-8.2) g/dL Albumin (3.4-5.0) g/dL Globulin Albumin/Globulin Ratio Lipase (73-393) U/L Urine Color Dark yellow H (YELLOW) Urine Appearance Slightly cloudy H (CLEAR) Urine pH 6.0 (5.0-8.0) Ur Specific [place] 1.025 Urine Protein Negative (NEGATIVE) mg/dL Urine Glucose (UA) Negative (NEGATIVE) mg/dL Urine Ketones Negative (NEGATIVE) mg/dL Urine Occult Blood Moderate H (NEGATIVE) Urine Nitrite Negative (NEGATIVE) Urine Bilirubin Small H (NEGATIVE) Urine Urobilinogen 0.2 (0.2) EU/dL Ur Leukocyte Esterase Negative (NEGATIVE) Urine RBC 10-20 H (NOT SEEN) /HPF Urine WBC 0-5 (NOT SEEN) /HPF Ur Squamous Epith Cells Few H (NEGATIVE) /HPF Urine Bacteria Rare (NEGATIVE) /HPF Urine Mucus Few H (NEGATIVE) /LPF Meds: Medications Generic Name Dose Route Start Last Admin Trade Name Fresamantha PRN Reason Stop Dose Admin Sodium Chloride 10 ml 01/28/20 17:18 01/28/20 17:55 Saline Flush FLUSH 10 ml ASDIRECTED PRN Administration Keep Vein Open Discontinued Medications Generic Name Dose Route Start Last Admin Trade Name Fresamantha PRN Reason Stop Dose Admin Hydromorphone HCl 0.5 mg 01/28/20 17:33 01/28/20 17:54 Dilaudid IVPUSH 01/28/20 17:34 0.5 mg ONETIME ONE Administration Piperacillin Sod/Tazobactam 100 mls @ 200 mls/hr 01/28/20 17:34 01/28/20 18:05 Sod 3.375 gm/ Sodium Chloride IV 01/28/20 18:03 200 mls/hr STAT ONE Administration Lactated Ringer's 1,000 mls @ 999 mls/hr 01/28/20 17:58 01/28/20 18:31 Ringers, Lactated IV 01/28/20 18:58 999 mls/hr ONETIME ONE Administration Iopamidol 100 ml 01/28/20 18:29 01/28/20 18:30 Isovue-300 (61%) IVPUSH 01/28/20 18:30 100 ml ONETIME ONE Administration Ondansetron HCl 4 mg 01/28/20 17:33 01/28/20 17:51 Zofran IV 01/28/20 17:34 4 mg ONETIME ONE Administration - Re-Assessments/Exams Free Text/Narrative Re-Assessment/Exam: 01/28/20 17:41 With the 22k WBC blood cultures x 2 Zosyn 3.375mg IVpB Ondansetron and dilaudid for pain and nausea. CT abd pelvis pending. 01/28/20 19:47 The patient's pain was much improved after the above therapy. CT scan of the abdomen pelvis per radiology shows surrounding fat stranding in the region of the pancreatic head. 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 No fluid collection no thrombosis of the portal vein. No splenic artery aneurysm. No gallbladder wall thickening or ulises-cholecystic fluid. Her urine has some blood in it although no noted stones per the CT scan. No sign of infection. I am unsure of exactly where her pain and WBC is coming from although I have concerns of her gallbladder by exam. I called and spoke with Dr. Giraldo the hospitalist behavioral consultant at [facility] in [place]. HPI ER COURSE findings and concerns were relayed to him. He accepted the patient in transfer with no new orders or guidance at this time. Departure - Departure Time of Disposition: 19:45 Disposition: DC/Tfer to [facility] 02 Clinical Impression: RUQ pain Leukocytosis Qualifiers: Leukocytosis type: unspecified Qualified Code(s): D72.829 - Elevated white blood cell count, unspecified - Discharge Information Referrals: Nina Bolanos MD [Primary Care Provider] - Forms: ED Department Discharge, Interfacility Transfer [facility] Sepsis Event Note (ED) - Evaluation Sepsis Screening Result: No Definite Risk - Focused Exam Vital Signs: Vital Signs Temp Pulse Resp BP Pulse Ox 01/28/20 18:31 95.5 F L 100 16 110/53 L 90 L 01/28/20 17:01 100.1 F 55 L 16 137/51 L 93 L - My Orders Last 24 Hours: My Active Orders 01/28/20 17:18 EKG Documentation Completion [RC] STAT Sodium Chloride 0.9% [Saline Flush] 10 ml FLUSH ASDIRECTED PRN Peripheral IV Insertion Adult [OM.PC] Stat 01/28/20 17:31 Blood Culture x2 Reflex Set [OM.PC] Stat 01/28/20 17:35 CULTURE BLOOD [BC] Stat 01/28/20 17:42 CULTURE BLOOD [BC] Stat - Assessment/Plan Last 24 Hours: My Active Orders 01/28/20 17:18 EKG Documentation Completion [RC] STAT Sodium Chloride 0.9% [Saline Flush] 10 ml FLUSH ASDIRECTED PRN Peripheral IV Insertion Adult [OM.PC] Stat 01/28/20 17:31 Blood Culture x2 Reflex Set [OM.PC] Stat 01/28/20 17:35 CULTURE BLOOD [BC] Stat 01/28/20 17:42 CULTURE BLOOD [BC] Stat Assessment:: RUQ pain Leukocytosis. ? acute pineda
[2020-01-28 17:43] LABS: CHLORIDE,CL 99 mmol/L (98-107); SODIUM,NA 135 mmol/L (136-145)
[2020-01-28 17:45] LABS: ANION GAP 15.3 mmol/L (10-20)
[2020-01-28] MEDS ORDERED: Lactated Ringers 1,000 ML IV ONE (17:58)
[2020-01-28] MEDS ORDERED: Iopamidol 612 MG/ML 100 ML Bottle IVPUSH ONE (18:29)
--- NOTE | 2020-01-28 19:11 | CT ---
[id number] CT/CT Abdomen Pelvis W IV EXAM: CT Abdomen Pelvis W IV CLINICAL DATA: RUQ PAIN, 22K WBC COMPARISON STUDY: 02/08/2017. FINDINGS: Lung bases are clear. The liver, spleen, adrenal glands and kidneys are unremarkable. There is fatty atrophy of the pancreas. There is a small amount of fat stranding in the region of the pancreatic head. The gallbladder is mildly distended however there are no stones identified. No gallbladder wall thickening or pericholecystic fluid. Postsurgical changes of the distal colon. A few scattered colonic diverticula. No evidence of acute diverticulitis. The appendix is visualized and appears normal. No bowel obstruction or inflammation. No lymphadenopathy, free fluid, or pneumoperitoneum. Atherosclerotic calcifications of the aorta and its branches. Scattered changes of spondylosis the spine. No fracture or osseous lesion. IMPRESSION: 1. Surrounding fat stranding in the region of the pancreatic head. 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 Correlation with lipase levels is recommended. No fluid collection. No thrombosis of the portal vein. No splenic artery aneurysm. Nik Verma DO 01/28/20 [id number] Thank you for allowing us to participate in the care of your patient.
[2020-01-28 20:16] VITALS: BP 113/50; PULSE 80
[2020-01-28] MEDS ORDERED: Ondansetron 4 MG/2 ML SDV IVPUSH ONE (20:31)
== END 2020-01-28 20:40 | disposition short-term general hospital (02) ==
LOC: VM.ED 16:50
DX: D72.829 Elevated white blood cell count, unspecified (principal); E78.00 Pure hypercholesterolemia, unspecified; I10 Essential (primary) hypertension; J44.9 Chronic obstructive pulmonary disease, unspecified; E66.9 Obesity, unspecified; Z68.34 Body mass index [BMI] 34.0-34.9, adult; Z88.0 Allergy status to penicillin; Z79.82 Long term (current) use of aspirin; Z79.899 Other long term (current) drug therapy
CPT/HCPCS: 36415; 74177; 80053; 81001; 83605; 83690; 84484; 85025; 86140; 87040; 93005; 93010; 96374; 96375; 96376; 99284-GF; 99285-25; J1170; J2405; J2543; J7050; J7120; Q9967

== ENCOUNTER 2021-09-01 12:59 | Emergency (ER) | payer MEDICARE, OTHER, MEDICAID ==
[2021-09-01] MEDS ORDERED: Sodium Chloride 0.9% 10 ML Syringe FLUSH PRN (13:07)
[2021-09-01] MEDS ORDERED: Acetaminophen 500 MG Tab PO ONE (13:10)
[2021-09-01] MEDS ORDERED: cefTRIAXone 2 GM Vial IVPUSH ONE (13:18)
[2021-09-01 14:14] LABS: PTT,PARTIAL THROMBOPLSTIN TIME 21.5 SEC (20.5-30.9)
[2021-09-01 14:24] LABS: CHLORIDE,CL 102 mmol/L (98-107); SODIUM,NA 136 mmol/L (136-145)
[2021-09-01 14:28] LABS: ANION GAP 13.6 mmol/L (5-15)
[2021-09-01] MEDS ORDERED: Sodium Chloride 0.9% 1,000 ML IV SCH (14:45)
[2021-09-01] MEDS ORDERED: Iopamidol 612 MG/ML 100 ML Bottle IVPUSH ONE (14:50)
[2021-09-01 15:20] LABS: CORONAVIRUS COVID-19 NAA POSITIVE (NEGATIVE); RESPIRATORY SYNCYTIAL VIR NAA NEGATIVE (NEGATIVE)
[2021-09-01] MEDS ORDERED: REMDESIVIR 200 MG in Sodium Chloride 0.9% 250 ML IV ONE (15:29)
[2021-09-01] MEDS ORDERED: dexAMETHasone 2 MG, dexAMETHasone 4 MG PO ONE ×2 (15:30)
[2021-09-01] MEDS ORDERED: Morphine 4 MG/ML Syringe IVPUSH ONE (15:38)
[2021-09-01 18:23] VITALS: BP 118/76; PULSE 96
== END 2021-09-01 18:15 | disposition short-term general hospital (02) ==
LOC: VM.ED 12:59
DX: A41.89 Other specified sepsis (principal); U07.1 COVID-19; K85.90 Acute pancreatitis without necrosis or infection, unspecified; E78.00 Pure hypercholesterolemia, unspecified; I10 Essential (primary) hypertension; J44.9 Chronic obstructive pulmonary disease, unspecified; E66.9 Obesity, unspecified; Z88.0 Allergy status to penicillin; Z79.82 Long term (current) use of aspirin; Z79.899 Other long term (current) drug therapy; Z68.32 Body mass index [BMI] 32.0-32.9, adult
CPT/HCPCS: 0241U; 36415; 51702; 71045; 74177; 80053; 81001; 82150; 83605; 83690; 83735; 83880; 84100; 84443; 84484; 85025; 85610; 85730; 86140; 87040; 93010; 94760; 96365; 96375; 99284; 99285-25; A9270-GY; J0248; J0696; J2270; J7030; J7050; J8540; Q9967

== ENCOUNTER 2021-09-11 20:31 | Emergency (ER) | payer MEDICARE, OTHER, MEDICAID ==
[2021-09-11] MEDS ORDERED: Sodium Chloride 0.9% 10 ML Syringe FLUSH PRN (20:58)
[2021-09-11 21:05] VITALS: BP 107/65; PULSE 87
[2021-09-11] MEDS: Sodium Chloride 0.9% 1,000 ML IV SCH (21:10)
[2021-09-11] MEDS: Ondansetron 4 MG/2 ML SDV IVPUSH ONE (21:17)
[2021-09-11] MEDS: HYDROmorphone 0.5 MG/0.5 ML Syringe IVPUSH ONE (21:20)
[2021-09-11 21:38] LABS: ANION GAP 11.3 mmol/L (5-15)
[2021-09-11] MEDS: Magnesium Hydroxide 400 MG/5 ML Susp 30 ML Cup PO ONE (22:13)
== END 2021-09-11 22:20 | disposition home or self-care (01) ==
LOC: VM.ED 20:31
DX: R10.31 Right lower quadrant pain (principal); R10.11 Right upper quadrant pain; J44.9 Chronic obstructive pulmonary disease, unspecified; K21.9 Gastro-esophageal reflux disease without esophagitis; E66.9 Obesity, unspecified; Z68.36 Body mass index [BMI] 36.0-36.9, adult; Z88.0 Allergy status to penicillin; Z79.899 Other long term (current) drug therapy
CPT/HCPCS: 80053; 81003; 82150; 83605; 83690; 83735; 84100; 84145; 85025; 85610; 85730; 86140; 96374; 96375; 99284; 99284-25; A9270-GY; J1170; J2405; J7030

== ENCOUNTER 2022-11-20 14:41 | Observation (INO) | payer MEDICARE, OTHER, MEDICAID ==
[2022-11-20] MEDS ORDERED: Sodium Chloride 0.9% 10 ML Syringe FLUSH PRN (15:14)
[2022-11-20] MEDS ORDERED: Lactated Ringers 1,000 ML IV ONE ×2 (15:15→20:53)
[2022-11-20] MEDS ORDERED: Ondansetron 4 MG/2 ML SDV IVPUSH ONE (15:15)
[2022-11-20 15:33] LABS: BASOPHILS PERCENT AUTO 0.3 % (0.2-1.2); EOSINOPHILS ABSOLUTE AUTO 0.3 x10^3/uL (0.0-0.5); EOSINOPHILS PERCENT AUTO 2.4 % (0.0-4.0); HEMATOCRIT 37.6 % (33.0-47.0); HEMOGLOBIN 12.5 g/dL (12.0-16.0); IMMATURE GRAN ABSOLUTE AUTO 0.05 x10^3/uL (0.00-0.07); LYMPHOCYTES PERCENT AUTO 8.7 % (25.0-50.0); MEAN CORPUSCULAR HEMOGLOBIN 31.6 pg (26.0-32.0); MEAN CORPUSCULAR HGB CONC 33.2 g/dL (32.0-36.0); MEAN CORPUSCULAR VOLUME 95.2 fL (78.0-93.0); MONOCYTES ABSOLUTE AUTO 0.9 x10^3/uL (0.0-0.8); MONOCYTES PERCENT AUTO 7.9 % (2.0-11.0); NEUTROPHILS ABSOLUTE AUTO 8.9 x10^3/uL (1.8-7.7); NEUTROPHILS PERCENT AUTO 80.2 % (50.0-80.0); PLATELET COUNT,PLT 270 x10^3/uL (130-400); RED BLOOD CELL COUNT 3.95 x10^6/uL (4.00-5.50)
[2022-11-20 15:54] LABS: A/G RATIO 1.03; ALBUMIN 3.6 g/dL (3.4-5.0); BILIRUBIN TOTAL 0.2 mg/dL (0.2-1.0); CALCIUM 9.1 mg/dL (8.5-10.1); EST CRCL DRUG DOSING (CG) 39.03 mL/min; POTASSIUM,K 3.6 mmol/L (3.5-5.1); PROTEIN TOTAL,TP 7.1 g/dL (6.4-8.2)
[2022-11-20 15:56] LABS: ANION GAP 13.6 mmol/L (5-15)
[2022-11-20 17:28] LABS: BILIRUBIN,URINE NEGATIVE (NEGATIVE); COLOR,URINE ORANGE (YELLOW); GLUCOSE,URINE NEGATIVE (NEGATIVE); KETONES,URINE NEGATIVE (NEGATIVE); LEUKOCYTE ESTERASE,URINE NEGATIVE (NEGATIVE); NITRITE,URINE POSITIVE (NEGATIVE); OCCULT BLOOD,URINE TRACE-INTACT (NEGATIVE); PH,URINE 6.5 (5.0-8.0); PROTEIN,URINE NEGATIVE (NEGATIVE)
[2022-11-20 17:41] LABS: APPEARANCE,URINE SLIGHTLY CLOUDY (CLEAR)
[2022-11-20 17:43] LABS: BACTERIA,URINE OCCASIONAL /HPF (NOT SEEN); SQUAMOUS EPITHELIAL CELLS,UR FEW /HPF (NOT SEEN); WBC,URINE 0-5 /HPF (NOT SEEN)
[2022-11-20] MEDS ORDERED: cefTRIAXone 2 GM Vial IVPUSH ONE (18:00)
[2022-11-20] MEDS ORDERED: Ondansetron 4 MG/2 ML SDV IVPUSH PRN (18:52)
[2022-11-20] MEDS ORDERED: Albuterol HFA 18 Gm Inhaler INH PRN (20:54)
[2022-11-20] MEDS ORDERED: diphenhydrAMINE 25 MG Cap PO PRN (20:54)
[2022-11-20] MEDS ORDERED: Polyethylene Glycol 3350 Powder 17 GM Packet PO PRN (20:54)
[2022-11-20] MEDS ORDERED: Melatonin 3 MG Tab PO SCH (21:00)
[2022-11-20] MEDS: Acetaminophen 325 MG Tab PO SCH (21:35)
[2022-11-20] MEDS: Meclizine 25 MG Tab PO PRN (21:37)
[2022-11-21] MEDS: Meclizine 25 MG Tab PO PRN (04:11)
[2022-11-21] MEDS: Acetaminophen 325 MG Tab PO SCH (08:42)
[2022-11-21] MEDS ORDERED: Lisinopril 10 MG Tab PO SCH (09:00)
[2022-11-21] MEDS ORDERED: Metoprolol Succinate 25 MG Tab.ER PO SCH (09:00)
[2022-11-21] MEDS ORDERED: Mirabegron 25 MG Tab Extended Release PO SCH (09:00)
[2022-11-21] MEDS ORDERED: Tiotropium BR/Olodaterol HCL 4 GM Inhalation Spray 2.5mcg/1 dose; 10 doses INH SCH (09:00)
[2022-11-21] MEDS ORDERED: Omeprazole 20 MG Cap.CR PO SCH (09:00)
[2022-11-21] MEDS ORDERED: Furosemide 20 MG Tab PO SCH (09:00)
[2022-11-21] MEDS ORDERED: Hydrochlorothiazide 25 MG Tab PO SCH (09:00)
[2022-11-21 10:21] VITALS: BP 150/68; PULSE 81
[2022-11-21] MEDS ORDERED: cefTRIAXone 1 GM Vial IVPUSH SCH (18:00)
== END 2022-11-21 11:15 | disposition home or self-care (01) ==
LOC: VM.ED 14:41 → VM.MS 17:02
PROVIDERS: ADMIT Physician Assistant; ATTEND Physician Assistant
DX: N39.0 Urinary tract infection, site not specified (principal); R11.2 Nausea with vomiting, unspecified; E78.00 Pure hypercholesterolemia, unspecified; I10 Essential (primary) hypertension; J44.9 Chronic obstructive pulmonary disease, unspecified; K21.9 Gastro-esophageal reflux disease without esophagitis; M54.9 Dorsalgia, unspecified; G89.29 Other chronic pain; M19.90 Unspecified osteoarthritis, unspecified site; F41.9 Anxiety disorder, unspecified; E66.9 Obesity, unspecified; Z88.0 Allergy status to penicillin; Z79.899 Other long term (current) drug therapy; Z87.891 Personal history of nicotine dependence
CPT/HCPCS: 36415; 80053; 81001; 83735; 85025; 87086; 96361; 96374; 96375; 99284-25; A9270-GY; J0696; J2405; J3360; J3490; J7120

== ENCOUNTER 2023-04-26 18:25 | Emergency (ER) | payer MEDICARE, OTHER, MEDICAID ==
[2023-04-26] MEDS ORDERED: cefTRIAXone 1 GM Vial IVPUSH ONE (18:33)
[2023-04-26 18:38] VITALS: BP 140/82; PULSE 105
[2023-04-26 19:03] LABS: BASOPHILS ABSOLUTE AUTO 0.1 x10^3/uL (0.0-0.2); BASOPHILS PERCENT AUTO 0.5 % (0.2-1.2); EOSINOPHILS ABSOLUTE AUTO 0.1 x10^3/uL (0.0-0.5); HEMATOCRIT 36.6 % (33.0-47.0); HEMOGLOBIN 12.1 g/dL (12.0-16.0); IMMATURE GRAN ABSOLUTE AUTO 0.04 x10^3/uL (0.00-0.07); LYMPHOCYTES PERCENT AUTO 5.5 % (25.0-50.0); MEAN CORPUSCULAR HEMOGLOBIN 31.8 pg (26.0-32.0); MEAN CORPUSCULAR HGB CONC 33.1 g/dL (32.0-36.0); MEAN CORPUSCULAR VOLUME 96.3 fL (78.0-93.0); MONOCYTES ABSOLUTE AUTO 0.7 x10^3/uL (0.0-0.8); MONOCYTES PERCENT AUTO 7.6 % (2.0-11.0); NEUTROPHILS ABSOLUTE AUTO 8.3 x10^3/uL (1.8-7.7); PLATELET COUNT,PLT 227 x10^3/uL (130-400); WHITE BLOOD CELL COUNT,WBC 9.8 x10^3/uL (4.0-10.0)
[2023-04-26] MEDS ORDERED: Acetaminophen 325 MG Tab PO ONE (19:06)
[2023-04-26 19:24] LABS: A/G RATIO 0.89; ALANINE AMINOTRANSFERASE,ALT 25 U/L (14-59); ALBUMIN 3.2 g/dL (3.4-5.0); ALKALINE PHOSPHATASE 51 U/L (46-116); ASPARTATE AMNIOTRANSFERASE,AST 17 U/L (15-37); BILIRUBIN TOTAL 0.4 mg/dL (0.2-1.0); BLOOD UREA NITROGEN,BUN 20 mg/dL (7-18); C-REACTIVE PROTEIN 3.38 mg/dL (<=0.30); CALCIUM 8.6 mg/dL (8.5-10.1); CARBON DIOXIDE,CO2 28 mmol/L (21-32); CHLORIDE,CL 100 mmol/L (98-107); GLUCOSE RANDOM 136 mg/dL (70-99); POTASSIUM,K 3.6 mmol/L (3.5-5.1); PROTEIN TOTAL,TP 6.8 g/dL (6.4-8.2); SODIUM,NA 137 mmol/L (136-145)
[2023-04-26 19:27] LABS: LACTIC ACID 1.2 mmol/L (0.4-2.0)
[2023-04-26 19:39] LABS: ANION GAP 12.6 mmol/L (5-15); ESTIMATED GFR 56 mL/min (>=60)
[2023-04-26 19:48] LABS: INFLUENZA A NAA NEGATIVE (NEGATIVE); INFLUENZA B NAA NEGATIVE (NEGATIVE)
[2023-04-26 19:48] LABS: LYMPHOCYTES ABSOLUTE AUTO 0.5 x10^3/uL (1.0-4.8)
[2023-04-26 19:50] LABS: CORONAVIRUS COVID-19 NAA POSITIVE (NEGATIVE)
[2023-04-26 20:11] LABS: APPEARANCE,URINE CLEAR (CLEAR); BILIRUBIN,URINE NEGATIVE (NEGATIVE); COLOR,URINE YELLOW (YELLOW); GLUCOSE,URINE NEGATIVE (NEGATIVE); KETONES,URINE NEGATIVE (NEGATIVE); LEUKOCYTE ESTERASE,URINE NEGATIVE (NEGATIVE); NITRITE,URINE NEGATIVE (NEGATIVE); OCCULT BLOOD,URINE SMALL (NEGATIVE); PROTEIN,URINE NEGATIVE (NEGATIVE); UROBILINOGEN,URINE 0.2 EU/dL (0.2)
[2023-04-26 20:20] LABS: BACTERIA,URINE NOT SEEN /HPF (NOT SEEN); CALCIUM OXALATE CRYSTALS,URINE RARE /HPF (NOT SEEN); MUCUS,URINE RARE /LPF (NOT SEEN); RBC,URINE 0-5 /HPF (NOT SEEN); SQUAMOUS EPITHELIAL CELLS,UR FEW /HPF (NOT SEEN); WBC,URINE 0-5 /HPF (NOT SEEN)
== END 2023-04-26 20:22 | disposition home or self-care (01) ==
LOC: VM.ED 18:25
DX: U07.1 COVID-19 (principal); I10 Essential (primary) hypertension; Z79.899 Other long term (current) drug therapy; J44.9 Chronic obstructive pulmonary disease, unspecified; K21.9 Gastro-esophageal reflux disease without esophagitis; E66.9 Obesity, unspecified; Z86.16 Personal history of COVID-19; Z87.891 Personal history of nicotine dependence; Z88.0 Allergy status to penicillin
CPT/HCPCS: 0240U; 36415; 71045; 80053; 81001; 83605; 84145; 85025; 86140; 87040; 96374; 99285; A9270; J0696

== ENCOUNTER 2023-12-13 01:30 | Emergency (ER) | payer MEDICARE, OTHER, MEDICAID ==
[2023-12-13] MEDS ORDERED: Sodium Chloride 0.9% 10 ML Syringe FLUSH PRN ×2 (01:37→01:38)
[2023-12-13 01:49] LABS: BASOPHILS PERCENT AUTO 0.3 % (0.2-1.2); EOSINOPHILS ABSOLUTE AUTO 0.3 x10^3/uL (0.0-0.5); HEMATOCRIT 36.6 % (33.0-47.0); HEMOGLOBIN 12.5 g/dL (12.0-16.0); IMMATURE GRAN ABSOLUTE AUTO 0.03 x10^3/uL (0.00-0.07); LYMPHOCYTES ABSOLUTE AUTO 0.8 x10^3/uL (1.0-4.8); LYMPHOCYTES PERCENT AUTO 6.9 % (25.0-50.0); MEAN CORPUSCULAR HEMOGLOBIN 31.6 pg (26.0-32.0); MEAN CORPUSCULAR HGB CONC 34.2 g/dL (32.0-36.0); MEAN CORPUSCULAR VOLUME 92.4 fL (78.0-93.0); MONOCYTES ABSOLUTE AUTO 1.2 x10^3/uL (0.0-0.8); MONOCYTES PERCENT AUTO 9.9 % (2.0-11.0); NEUTROPHILS ABSOLUTE AUTO 9.9 x10^3/uL (1.8-7.7); NEUTROPHILS PERCENT AUTO 80.7 % (50.0-80.0); PLATELET COUNT,PLT 270 x10^3/uL (130-400); RED BLOOD CELL COUNT 3.96 x10^6/uL (4.00-5.50); WHITE BLOOD CELL COUNT,WBC 12.3 x10^3/uL (4.0-10.0)
[2023-12-13] MEDS: Acetaminophen 500 MG Tab PO ONE (01:57)
[2023-12-13] MEDS: Sodium Chloride 0.9% 1,000 ML IV ONE (01:57)
[2023-12-13] MEDS: Albuterol 0.083% 2.5 MG/3 ML Neb Soln NEB ONE (01:57)
[2023-12-13 02:11] LABS: A/G RATIO 0.83; ALANINE AMINOTRANSFERASE,ALT 12 U/L (14-59); ALBUMIN 3.3 g/dL (3.4-5.0); ALKALINE PHOSPHATASE 52 U/L (46-116); ASPARTATE AMNIOTRANSFERASE,AST 16 U/L (15-37); BILIRUBIN TOTAL 0.9 mg/dL (0.2-1.0); BLOOD UREA NITROGEN,BUN 16 mg/dL (7-18); CALCIUM 9.4 mg/dL (8.5-10.1); CARBON DIOXIDE,CO2 29 mmol/L (21-32); CHLORIDE,CL 93 mmol/L (98-107); CREATININE 0.8 mg/dL (0.55-1.02); GLUCOSE RANDOM 145 mg/dL (70-99); POTASSIUM,K 3.3 mmol/L (3.5-5.1); PROTEIN TOTAL,TP 7.3 g/dL (6.4-8.2); SODIUM,NA 133 mmol/L (136-145)
[2023-12-13 02:13] LABS: ANION GAP 14.3 mmol/L (5-15); ESTIMATED GFR 73 mL/min (>=60)
[2023-12-13 02:28] LABS: CORONAVIRUS COVID-19 NAA NEGATIVE (NEGATIVE); INFLUENZA A NAA NEGATIVE (NEGATIVE); INFLUENZA B NAA NEGATIVE (NEGATIVE); RESPIRATORY SYNCYTIAL VIR NAA NEGATIVE (NEGATIVE)
[2023-12-13] MEDS: Dexamethasone 4 MG/ML SDV IVPUSH ONE (02:39)
[2023-12-13] MEDS: Take Home: Azithromycin 250 MG, 2 Tab Pack PO ONE (02:40)
[2023-12-13] MEDS: Take Home: Albuterol 18 GM Inhaler, 1 Inhaler Pack INH PRN (02:45)
[2023-12-13 05:21] VITALS: BP 165/80; PULSE 102
== END 2023-12-13 02:53 | disposition home or self-care (01) ==
LOC: VM.ED 01:30
DX: J06.9 Acute upper respiratory infection, unspecified (principal); J44.1 Chronic obstructive pulmonary disease with (acute) exacerbation; R05.9 Cough, unspecified; I10 Essential (primary) hypertension; K21.9 Gastro-esophageal reflux disease without esophagitis; E66.9 Obesity, unspecified; Z90.710 Acquired absence of both cervix and uterus; Z86.16 Personal history of COVID-19; Z79.899 Other long term (current) drug therapy; Z79.1 Long term (current) use of non-steroidal anti-inflammatories (NSAID); Z79.2 Long term (current) use of antibiotics; Z88.0 Allergy status to penicillin
CPT/HCPCS: 0241U; 36415; 71045; 80053; 83605; 85025; 94640; 96361; 96374; 99284; A9270; J1100; J7030; J7613-GY